=== PATIENT | male | born 1945 | race Two or more races ===

== ENCOUNTER 2016-12-09 10:47 | Outpatient (CLI) | payer MEDICARE ==
[2016-12-09 12:39] LABS: CREATININE 1.1 mg/dL (0.6-1.3)
== END 2016-12-09 23:59 | disposition home or self-care (01) ==
LOC: LAB 10:47
DX: I10 Essential (primary) hypertension (principal); R10.11 Right upper quadrant pain
CPT/HCPCS: 36415; 82565-TC; 84520-TC

== ENCOUNTER → 2016-12-10 | Outpatient (CLI) | payer MEDICARE ==
[~2016-12-10] MED LIST: BARIUM SULFATE SUSP 450 ML BOTTLE PO ONE; CT SWABBABLE VALVE TRANS SET 1 EA INFUS.SET MC ONE; IOHEXOL-300 100 ML VIAL IV ONE; IV NS 0.9% 250 ML IV ONE
== END | disposition home or self-care (01) ==
LOC: CT 09:00
DX: I10 Essential (primary) hypertension (principal); I31.1 Chronic constrictive pericarditis; N28.1 Cyst of kidney, acquired; I70.0 Atherosclerosis of aorta; M47.819 Spondylosis without myelopathy or radiculopathy, site unspecified
CPT/HCPCS: 74160; J7050; Q9967

== ENCOUNTER 2017-09-08 00:44 | Inpatient (IN) | payer MEDICARE ==
[2017-09-08] VITALS (16 sets, daily range): BP systolic 93–145; BP diastolic 45–77
[~2017-09-08] VITALS: Ht 182.9 cm; Wt 84.4 kg
[2017-09-08] MEDS: LORAZEPAM INJ 2 MG/ML VIAL IV ONE ×2 (01:00→02:35)
[2017-09-08] MEDS ORDERED: IV NS 0.9% 1,000 ML BAG IV ONE (01:00)
--- NOTE | 2017-09-08 01:00 | NUR ---
PT CALM AND RESTING IN BED. NO NEED TO MEDICATE PT FOR COMPLIANCE.
--- NOTE | 2017-09-08 01:05 | NUR ---
72 Y/O MALE PLACED IN BED 6 C/O LEFT SHOULDER PAIN. OXYGEN SAT LOW - 88%. PLACED ON 3L OXYGEN. PT TAKENTO CT.
[2017-09-08 01:09] LABS: BASOPHILS % (AUTO) 0.2 % (0.0-2.0); EOSINOPHILS # (AUTO) 0.1 /CMM (0.0-0.7); EOSINOPHILS % (AUTO) 0.4 % (0.0-6.0); HEMATOCRIT 41 % (39-51); HEMOGLOBIN 14.1 g/dL (13.5-17.5); LYMPHOCYTES # (AUTO) 1.5 /CMM (0.8-4.8); LYMPHOCYTES % (AUTO) 9.2 % (20.0-44.0); MEAN CORPUSCULAR HEMOGLOBIN 31 PG (26.0-33.0); MEAN CORPUSCULAR HGB CONC 34 g/dl (31.0-36.0); MEAN CORPUSCULAR VOLUME 89 fL (80-96); MONOCYTES # (AUTO) 0.8 /CMM (0.1-1.30); MONOCYTES % (AUTO) 5.1 % (2.0-12.0); NEUTROPHILS # (AUTO) 13.8 /CMM (1.8-8.9); NEUTROPHILS % (AUTO) 85.1 % (43.0-81.0); PLATELET COUNT (AUTO) 212 /CMM (150-450); RDW COEFFICIENT OF VARIATION 13.7 (11.5-15.0); RED BLOOD CELL COUNT(AUTO) 4.61 MIL/uL (4.5-6.0); WHITE BLOOD COUNT (AUTO) 16.3 K/uL (4.3-11.0)
[2017-09-08 01:22] LABS: INR 1.08 (0.87-1.13)
[2017-09-08 01:28] LABS: CALCIUM, SERUM 9.2 mg/dL (8.5-10.1); CARBON DIOXIDE 22 mmol/L (21-32); CHLORIDE 100 mmol/L (98-107); CREATININE 1.2 mg/dL (0.6-1.3); GLUCOSE 198 mg/dL (74-106); POTASSIUM 3.7 mmol/L (3.5-5.1); SODIUM SERUM 136 mmol/L (136-145); UREA NITROGEN, BLOOD 24 mg/dL (7-18)
[2017-09-08 01:32] LABS: ALANINE AMINOTRANSFERASE 34 U/L (12-78); ALBUMIN 3.9 g/dL (3.4-5.0); ALCOHOL, BLOOD < 3 mg/dL (0-0); ALKALINE PHOSPHATASE 90 U/L (46-116); ASPARTATE AMINOTRANSFERASE 35 U/L (15-37); BILIRUBIN,DIRECT 0.1 mg/dL (0.0-0.2); BILIRUBIN,TOTAL 0.4 mg/dL (0.2-1.0); TOTAL PROTEIN, SERUM 7.5 g/dL (6.4-8.2)
[2017-09-08 01:33] LABS: ACETAMINOPHEN 0 ug/ml (10-30); SERUM AMMONIA 25 umol/L (11-32)
[2017-09-08 01:38] LABS: TROPONIN I < 0.017 ng/mL (0.00-0.056)
[2017-09-08 01:39] LABS: THYROID STIMULATING HORMONE 1.232 uIU/mL (0.358-3.74)
[2017-09-08 02:24] LABS: APPEARANCE,URINE CLEAR (CLEAR); BILIRUBIN,URINE NEGATIVE (NEGATIVE); BLOOD, URINE 1+ Ery/uL (NEGATIVE); COLOR,URINE YELLOW (YELLOW); KETONES,URINE NEGATIVE (NEGATIVE); LEUKOCYTE ESTERASE ,URINE NEGATIVE (NEGATIVE); NITRITE, URINE NEGATIVE (NEGATIVE); PROTEIN,URINE NEGATIVE (NEGATIVE); UGLUCOSE 1+ mg/dL (NEGATIVE); UROBILINOGEN,URINE 0.2 EU/dL (0.2)
[2017-09-08 02:31] LABS: BACTERIA,URINE None seen /HPF (None Seen); SQUAMOUS EPITHELIAL CELL,UR Rare /HPF (None Seen); WBC,URINE 0-2 /HPF (0-3)
[2017-09-08] MEDS ORDERED: LORAZEPAM INJ 2 MG/ML VIAL ONE (02:33)
--- NOTE | 2017-09-08 02:38 | NUR ---
PT BACK FROM CT. RESTING COMFORTABLY. PT HAD A SZ IN HIS BED.
--- NOTE | 2017-09-08 02:39 | NUR ---
LEFT SHOULDER PAIN FROM POSSIBLE SZ.
--- NOTE | 2017-09-08 02:48 | NUR ---
AT 235 PT HAD A SZ, WENT INTO ASYSTOLE FOR 9 SECONDS AND THEN RETURNED TO NORMAL RHYTHM.
[2017-09-08] MEDS ORDERED: LORAZEPAM INJ 2 MG/ML VIAL IV ONE (03:00)
[2017-09-08] MEDS ORDERED: LEVETIRACETAM (500MG) 500 MG/5 ML VIAL IV ONE (03:24)
[2017-09-08] MEDS ORDERED: LEVETIRACETAM (500MG) 1,000 MG in IV NS 0.9% 100 ML IV SCH (03:30)
--- NOTE | 2017-09-08 03:46 | NUR ---
PT GIVEN ATIVAN POST SZ. THE COMBINATION OF POST-ICTAL AND ATIVAN HAS MADE THE PT VERY CONFUSED. PT IS VERY RESTLES, MOVING HIS LEGS FROM SIDE TO SIDE AND MAKING ANIMAL SOUNDS. PT HAS BEEN ASSIGNED A ROOM - 256. REPORT IS BEING CALLED AND PT IS BEING PREPED FOR TRANSFER TO ICU.
[2017-09-08] MEDS: LEVETIRACETAM (500MG) 1,000 MG in IV NS 0.9% 100 ML IV SCH ×3 (04:01→04:08)
--- NOTE | 2017-09-08 04:10 | NUR ---
ICU/RN RECEIVED DIRECT FROM ER VIA [facility] TO RM 256 W/ ADMITTING DX OF SEIZURE.MONITOR SHOWS NSR W/OUT ECTOPICS.PT TRASHING IN BED, EXTREMELY AGITATED.W/ PROJECTILE VOMITING LARGE AMT OF UNDIGESTED FOOD,GIBBERISH,UNCOOPERATIVE.BATHED AND LINEN CHANGED,QUIETED DOWN AFTERWARDS.
--- NOTE | 2017-09-08 05:00 | NUR ---
ICU/RN HERE TO SEE PT.INTERVIEWED RE:PT'S CONDITION AND QUESTIONNAIRE.CONDITION REPORT GIVEN.PT SLEEPING AT THIS TIME. MOVES ALL EXTREMITIES.
--- NOTE | 2017-09-08 06:15 | NUR ---
ICU/RN. DR MARLEY IN TO SEE PT.CONDITION REPORT GIVEN,SHOWED ASYSTOLIC RHYTHM AFTER SEIZURE IN ER.
[2017-09-08] MEDS ORDERED: ONDANSETRON HCL/PF 4 MG/2 ML VIAL IVP PRN (06:30)
[2017-09-08] MEDS ORDERED: LORAZEPAM INJ 2 MG/ML VIAL IV PRN (06:30)
[2017-09-08] MEDS ORDERED: ACETAMINOPHEN 650 MG/SUPP.RECT RC PRN (06:30)
[2017-09-08] MEDS ORDERED: LEVETIRACETAM (500MG) 500 MG in IV NS 0.9% 100 ML IV SCH (06:30)
[2017-09-08 06:31] LABS: BASOPHILS % (AUTO) 0.2 % (0.0-2.0); HEMATOCRIT 38 % (39-51); HEMOGLOBIN 13.1 g/dL (13.5-17.5); LYMPHOCYTES # (AUTO) 0.3 /CMM (0.8-4.8); LYMPHOCYTES % (AUTO) 2.5 % (20.0-44.0); MEAN CORPUSCULAR HEMOGLOBIN 31 PG (26.0-33.0); MEAN CORPUSCULAR HGB CONC 35 g/dl (31.0-36.0); MEAN CORPUSCULAR VOLUME 88 fL (80-96); MONOCYTES # (AUTO) 0.6 /CMM (0.1-1.30); MONOCYTES % (AUTO) 4.5 % (2.0-12.0); NEUTROPHILS # (AUTO) 13.2 /CMM (1.8-8.9); NEUTROPHILS % (AUTO) 92.8 % (43.0-81.0); PLATELET COUNT (AUTO) 169 /CMM (150-450); RDW COEFFICIENT OF VARIATION 13.4 (11.5-15.0); RED BLOOD CELL COUNT(AUTO) 4.27 MIL/uL (4.5-6.0); WHITE BLOOD COUNT (AUTO) 14.3 K/uL (4.3-11.0)
[2017-09-08 06:45] LABS: CALCIUM, SERUM 8.4 mg/dL (8.5-10.1); CARBON DIOXIDE 27 mmol/L (21-32); CHLORIDE 102 mmol/L (98-107); GLUCOSE 134 mg/dL (74-106); POTASSIUM 3.7 mmol/L (3.5-5.1); SODIUM SERUM 136 mmol/L (136-145); UREA NITROGEN, BLOOD 21 mg/dL (7-18)
[2017-09-08 06:49] LABS: CHOLESTEROL 114 mg/dL (<200); HDL CHOLESTEROL 57 mg/dL (40-60); LDL 56 mg/dL (0-99); TRIGLYCERIDES 24 mg/dL (30-150)
--- NOTE | 2017-09-08 06:50 | NUR ---
ICU/RN HERE TO TALK TO PT IN [place].DR SALOMON AND DR. MARLEY SPOKE RE:PLACEMENT OF PACEMAKER.
[2017-09-08 06:56] LABS: TROPONIN I 3.649 ng/mL (0.00-0.056)
[2017-09-08 06:58] LABS: ALANINE AMINOTRANSFERASE 31 U/L (12-78); ALBUMIN 3.6 g/dL (3.4-5.0); ALKALINE PHOSPHATASE 81 U/L (46-116); ASPARTATE AMINOTRANSFERASE 59 U/L (15-37); B-TYPE NATRIURETIC PEPTIDE 141 PG/ML (0-125); BILIRUBIN,TOTAL 0.9 mg/dL (0.2-1.0); MAGNESIUM 2.2 mg/dL (1.8-2.4); PHOSPHORUS 2.2 mg/dL (2.5-4.9); TOTAL PROTEIN, SERUM 6.7 g/dL (6.4-8.2)
--- NOTE | 2017-09-08 07:30 | NUR ---
RN NOTE PT SLEEPY, BUT WAKES UP, PT AWARE WHERE HE IS. NO CO PAIN. IV SITE IN R AC, VS STABLE. CALL LIGHT WITHIN REACH. SAFETY MEASURES AND SEIZURE PRECAUTIONS OBSERVED. WILL MONITOR
--- NOTE | 2017-09-08 08:33 | NUR ---
RN NOTE OBTAINED CONSENT FOR PACEMAKER PLACEMENT FROM FER SAGASTUME AFTER SHE SPOKE WITH DR CRAIN. DAUGHTER AND SON IN LAW AT BEDSIDE. UPDATE REGARDING THE PT GIVEN.
[2017-09-08] MEDS ORDERED: RANI150T12 PO (08:49)
[2017-09-08] MEDS ORDERED: LISI2.5T2 PO (08:49)
[2017-09-08] MEDS ORDERED: MIDAZOLAM HCL 2 MG/2ML VIAL ONE (08:57)
[2017-09-08] MEDS ORDERED: FUROSEMIDE 20 MG/2 ML VIAL IV SCH (09:00)
[2017-09-08] MEDS ORDERED: LIDOCAINE 1% INJ 50 ML MDV IJ ONE (09:04)
--- NOTE | 2017-09-08 11:00 | NUR ---
RN NOTE PT CAME BACK FROM OR L CHEST WALL INCISION REDNESS, NO SWELLING, NO BLEEDING, VS STABLE, PAIN IN LEFT ARM UPON MOVING, WELL ON RIGHT ARM DUE TO FRACTURE. CALL LIGHT WITHIN REACH, WILL MONITOR PT CLOSELY.
[2017-09-08] MEDS: FAMOTIDINE/PF INJ 20 MG/2 ML VIAL IV SCH ×2 (11:13→22:28)
[2017-09-08] MEDS: Potassium Chloride 20 MEQ in IV D5/0.45 NACL 1,000 ML IV PRN (11:14)
[2017-09-08] MEDS: LEVETIRACETAM (500MG) 500 MG in IV NS 0.9% 100 ML IV SCH (12:19)
[2017-09-08] MEDS ORDERED: ACETAMINOPHEN 325 MG TABLET PO PRN (12:30)
[2017-09-08] MEDS ORDERED: HYDROCODONE/APAP 5/325MG 1 EACH TABLET PO PRN (12:30)
[2017-09-08] MEDS ORDERED: DOCUSATE SODIUM 250 MG CAPSULE PO PRN (12:30)
[2017-09-08] MEDS ORDERED: POTASSIUM PHOSPHATE MM 7.5 MMOL in IV D5W 100 ML IV SCH (13:30)
--- NOTE | 2017-09-08 14:15 | NUR ---
RN NOTE SPOKE WITH DR MARLEY REGARDING TROPONIN 7.238, HE ORDERED ASPIRIN DAILY 81MG AND LOVENOX 1MG/KG BID. WILL ORDER AND VERIFY WITH PHARMACY.
[2017-09-08] MEDS ORDERED: Z GUARD REMEDY 2 OZ OINT TP PRN (14:30)
[2017-09-08] MEDS: ASPIRIN 81 MG TAB.CHEW PO SCH (15:04)
--- NOTE | 2017-09-08 16:00 | NUR ---
RN NOTE PT ABLE TO TOLERATE LIQUIDS AND MEDS. SWALLOWED NORMALLY EARLIER, PER DR IT IS OKAY TO ORDER CARDIAC DIET.
[2017-09-08] MEDS: CEFAZOLIN SODIUM 1 GM in IV SODIUM CHLORIDE 0.9% 50 ML IV SCH (18:16)
--- NOTE | 2017-09-08 18:32 | NUR ---
RN NOTE PER DR MARLEY DOWNGRADE PT TO TELE, PT NEEDS TO BE NPO EXCEPT MEDS POST MIDNIGHT FOR [facility] CARDIAC INVESTMENT RECOVERY TECHNICIAN, RN RESEARCH TIME AT 0900 ON 09/09/17, HOLD LOVENOX IN THE MORNING, GIVE REPORT TO CARDIAC CATH AT . WILL ENDORSE TO NEXT SHIFT
[2017-09-08] MEDS: MORPHINE SULFATE INJ 2 MG/ML DISP.SYRIN IV PRN (19:33)
--- NOTE | 2017-09-08 19:40 | NUR ---
RN NOTES PT COMPLAINED OF SEVERE PAIN BETWEEN 8-10 SCALE. PT IS AOX3 STILL SLEEPY BUT VERBALIZED FEELINGS OF PAIN, FAMILY AT BEDSIDE. PRN MORPHINE IVP ADMINISTERED ORDERED. AND WILL FOLLOW UP FOR EFFECTIVENESS AFTER 30 -1 H. FAMILY AT BEDSIDE (DAUGHTER AND ) MADE AWARE.
--- NOTE | 2017-09-08 20:00 | NUR ---
RN NOTES FAMILY LEFT AND LEAVE THEIR CELL NUMBER, AWARE ABOUT THE PLAN OF CARE FOR TOMORROW TO [facility] FOR CARDIAC CATH.
--- NOTE | 2017-09-08 20:25 | NUR ---
RN NOTES TRANSFER PT TO ROOM [address]. REPORT GIVEN TO CHARITO FOR CONTINUITY OF CARE.
--- NOTE | 2017-09-08 20:30 | NUR ---
RN INITIAL NOTES RECEIVED PATIENT TRANSFER FROM ICU VIA ACLS PROTOCOL, PATIENT TOLERATED TRANSFER WELL. PATIENT IS LETHARGIC, BUT AROUSABLE TO NAME, ALERT AND ORIENTED X3. BREATHING EVEN AND NONLABORED WHILE ON O2 VIA NC @ 2LPM, TOLERATING WELL, FREE FROM ANY S/S OF RESPIRATORY DISTRESS. PLACED ON TELEMETRY MONITORING, REVEALING SINUS RHYTHM WITH BBB, HR = 72 AT THIS TIME, NO PACER SPIKES NOTED AT THIS TIME. RIGHT ARM SLING IN PLACE. IV SITES PATENT AND INTACT, FLUSHED WITH NS, FREE FROM ANY S/S OF INFILTRATION OR PHLEBITIS, IVF INFUSING ORDERED. DVT PUMPS IN PLACE. CALL LIGHT LEFT WITHIN EASY REACH, BED IN LOWEST AND LOCKED POSITION. WILL CONTINUE TO CLOSELY MONITOR
[2017-09-08] MEDS: ENOXAPARIN SODIUM 80 MG/0.8 ML DISP.SYRIN SQ SCH (22:30)
[2017-09-09] VITALS: BP 116/71
[2017-09-09] MEDS: LEVETIRACETAM (500MG) 500 MG in IV NS 0.9% 100 ML IV SCH (01:34)
--- NOTE | 2017-09-09 01:50 | NUR ---
RN NOTES PATIENT WITH C/O RIGHT SHOULDER PAIN. PATIENT REPOSITIONED SLIGHTLY FOR COMFORT, WITH NOTED IMPROVEMENT IN PAIN. OFFERED PAIN MEDICATION, BUT PATIENT REFUSES. WILL CONTINUE TO CLOSELY MONITOR
[2017-09-09] MEDS: CEFAZOLIN SODIUM 1 GM in IV SODIUM CHLORIDE 0.9% 50 ML IV SCH (02:23)
[2017-09-09 04:00] VITALS: BP 139/56
--- NOTE | 2017-09-09 07:00 | NUR ---
RN CLOSING NOTES PATIENT RESTING COMFORTABLY IN BED, DENIES PAIN. PATIENT NPO EXCEPT MEDS SINCE [place]. PATIENT ENDORSED TO THE AM SHIFT NURSE FOR NATASHA, AWARE TO HOLD LOVENOX DOSE, SCHEDULED FOR CARDIAC CATH AT [facility], VOCATIONAL REHABILITATION TEACHER AT 0900 PER CM.
--- NOTE | 2017-09-09 07:53 | NUR ---
TERRAZZO ROLLER NOTES RECEIVED PT ON BED SLEEPING, ALERT ORIENTED X3. ON NC 2L, SATURATING WELL NO SIGN OF RESPIRATORY DISTRESS. NO TELE MONITOR SR WITH BBB HR 70S. IV ACCESS LAC AND RAC. IV FLUID #20G D51/2NS WITH KCI 20MEQ @60CC/HR RUNNING WELL. HEAD OF BED ELEVATED. SIDE RAILS UP. CALL LIGHT WITHIN REACH. WILL CONTINUE TO MONITOR PT CLOSELY.
--- NOTE | 2017-09-09 07:55 | NUR ---
BARREL LAPPER NOTES CALLED [facility], THEY CANCEL THE CARDIAC CATH DUE TO NO BED AVAILABLE PER [facility].
[2017-09-09 08:00] VITALS: BP 129/62
[2017-09-09] MEDS: ENOXAPARIN SODIUM 80 MG/0.8 ML DISP.SYRIN SQ SCH (09:00)
[2017-09-09] MEDS ORDERED: LEVETIRACETAM (500MG) 500 MG in IV NS 0.9% 100 ML IV SCH (09:00)
[2017-09-09 09:28] LABS: BASOPHILS % (AUTO) 0.4 % (0.0-2.0); EOSINOPHILS % (AUTO) 0.5 % (0.0-6.0); HEMATOCRIT 35 % (39-51); HEMOGLOBIN 12.4 g/dL (13.5-17.5); LYMPHOCYTES # (AUTO) 0.5 /CMM (0.8-4.8); LYMPHOCYTES % (AUTO) 5.9 % (20.0-44.0); MEAN CORPUSCULAR HEMOGLOBIN 31 PG (26.0-33.0); MEAN CORPUSCULAR HGB CONC 35 g/dl (31.0-36.0); MEAN CORPUSCULAR VOLUME 87 fL (80-96); MONOCYTES # (AUTO) 0.5 /CMM (0.1-1.30); NEUTROPHILS # (AUTO) 6.8 /CMM (1.8-8.9); NEUTROPHILS % (AUTO) 86.2 % (43.0-81.0); PLATELET COUNT (AUTO) 137 /CMM (150-450); RDW COEFFICIENT OF VARIATION 12.4 (11.5-15.0); RED BLOOD CELL COUNT(AUTO) 4.02 MIL/uL (4.5-6.0); WHITE BLOOD COUNT (AUTO) 7.8 K/uL (4.3-11.0)
[2017-09-09] MEDS: ASPIRIN 81 MG TAB.CHEW PO SCH (09:35)
[2017-09-09] MEDS: FAMOTIDINE/PF INJ 20 MG/2 ML VIAL IV SCH ×2 (09:35→21:59)
[2017-09-09] MEDS: Potassium Chloride 20 MEQ in IV D5/0.45 NACL 1,000 ML IV PRN (10:30)
[2017-09-09 10:53] LABS: CALCIUM, SERUM 8.5 mg/dL (8.5-10.1); CARBON DIOXIDE 22 mmol/L (21-32); CHLORIDE 105 mmol/L (98-107); CREATININE 0.9 mg/dL (0.6-1.3); GLUCOSE 130 mg/dL (74-106); POTASSIUM 3.9 mmol/L (3.5-5.1); SODIUM SERUM 137 mmol/L (136-145); UREA NITROGEN, BLOOD 16 mg/dL (7-18)
[2017-09-09 10:59] LABS: ALANINE AMINOTRANSFERASE 35 U/L (12-78); ALBUMIN 3.1 g/dL (3.4-5.0); ALKALINE PHOSPHATASE 68 U/L (46-116); ASPARTATE AMINOTRANSFERASE 66 U/L (15-37); BILIRUBIN,TOTAL 0.7 mg/dL (0.2-1.0); MAGNESIUM 2.3 mg/dL (1.8-2.4); TOTAL PROTEIN, SERUM 6.2 g/dL (6.4-8.2)
[2017-09-09 12:00] VITALS: BP 135/66
[2017-09-09 16:00] VITALS: BP 129/71
[2017-09-09] MEDS ORDERED: GADOVERSETAMIDE 2.5 MMOL/5 ML VIAL IJ ONE (17:34)
[2017-09-09] MEDS ORDERED: GADOVERSETAMIDE 5 MMOL/10 ML VIAL IJ ONE (17:34)
--- NOTE | 2017-09-09 18:48 | NUR ---
IT INTEGRATION ARCHITECT NOTES NO ACUTE CHANGES NOTED DURING THE SHIFT. PROVIDED COMFORT AND SAFETY. DUE MEDS GIVEN. WILL ENDORSED TO THE PM NURSE FOR NATASHA.
--- NOTE | 2017-09-09 19:00 | NUR ---
RN OPENING NOTES PT RESTING IN BED. FAMILY AT BEDSIDE. PT HAS RIGHT SHOULDER FX. PT IS TELE MONITORED AT SR WITH BBB RATE IN THE 80'S. S/P PACEMAKER PLACEMENT (09/08/17). PT WILL BE TRANSFERRED TO [facility] FOR CARDIAC CATH CLINICAL APPEALS SPECIALIST WILL BE AT 0830. CONFIRMED WITH TRANSPORT. PT WILL BE NPO AFTER MIDNIGHT. PT HAS A R AC #16 INTACT AND PATENT AND A L AC #20 RUNNING D5 1/2 NS WITH KCL 20MEQ @60ML/HR. PT TOLERATING FLUIDS WELL. SAFETY PRECAUTIONS IN PLACE. WILL CONTINUE TO MONITOR.
--- NOTE | 2017-09-09 20:45 | NUR ---
RN NOTES PT AND FAMILY REFUSED XR OF SPINE. FAMILY STATED THAT THE PT WAS IN TOO MUCH PAIN TO GO THROUGH XRAY. GAVE FAMILY OPTION OF MEDICATING PT BEFORE XRAY. FAMILY CONTINUED TO REFUSE.
[2017-09-09] MEDS ORDERED: METOPROLOL TARTRATE 25 MG TABLET PO SCH (21:00)
[2017-09-09] MEDS ORDERED: ATORVASTATIN 40 MG TABLET PO SCH (22:00)
--- NOTE | 2017-09-09 22:00 | NUR ---
RN NOTES PT REQUESTED PAIN PRN PAIN MEDICATION FOR RIGHT SHOULDER PAIN. WILL ADMINISTER PRN MORPHINE 2MG. WILL CONTINUE TO MONITOR.
[2017-09-09] MEDS: MORPHINE SULFATE INJ 2 MG/ML DISP.SYRIN IV PRN (22:01)
[2017-09-09 22:41] VITALS: BP 143/61
[2017-09-10] VITALS: BP 130/63
[2017-09-10] MEDS: MORPHINE SULFATE INJ 2 MG/ML DISP.SYRIN IV PRN (02:32)
--- NOTE | 2017-09-10 02:32 | NUR ---
RN NOTES PT COMPLAINED UNABLE TO SLEEP BECAUSE OF PAIN. WILL ADMINISTER PRN PAIN MEDICATION, MORPHINE 2MG. WILL CONTINUE TO MONITOR.
[2017-09-10 04:00] VITALS: BP 130/62
[2017-09-10] MEDS: Potassium Chloride 20 MEQ in IV D5/0.45 NACL 1,000 ML IV PRN (04:20)
--- NOTE | 2017-09-10 06:39 | NUR ---
RN CLOSING NOTES PT AWAKE AND RESTING IN BED. NO COMPLAINTS OF PAIN, SOB OR DISTRESS AT THIS TIME. ALL PT NEEDS MET. PT IS TELE MONITORED SINUS RHYTHM WITH BBB HR IN THE 80'S. PT HAS A PACING PACEMAKER. PT IS NPO. PT HAS RIGHT AC #16 AND A LEFT AC #20 RUNNING D5 1/2NS WITH KCL 20MEQ @60ML/HR, PT TOLERATING WELL. PT WILL BE TRANSFERRED TO [facility] FOR CARDIAC O AND M SUPERVISOR. PT WILL BE PICKED UP BY TRANSPORT BY 830 FOR 1030 APPOINTMENT. SAFETY PRECAUTIONS IN PLACE. BED LOW LOCKED POSITION, CALL LIGHT WITHIN REACH. WILL ENDORSE TO DAY SHIFT NURSE FOR CONTINUITY OF CARE.
[2017-09-10 06:53] LABS: BASOPHILS % (AUTO) 0.3 % (0.0-2.0); EOSINOPHILS # (AUTO) 0.1 /CMM (0.0-0.7); EOSINOPHILS % (AUTO) 1.8 % (0.0-6.0); HEMATOCRIT 32 % (39-51); HEMOGLOBIN 11.3 g/dL (13.5-17.5); LYMPHOCYTES # (AUTO) 0.9 /CMM (0.8-4.8); LYMPHOCYTES % (AUTO) 12.2 % (20.0-44.0); MEAN CORPUSCULAR HEMOGLOBIN 31 PG (26.0-33.0); MEAN CORPUSCULAR HGB CONC 35 g/dl (31.0-36.0); MEAN CORPUSCULAR VOLUME 89 fL (80-96); MONOCYTES # (AUTO) 0.8 /CMM (0.1-1.30); MONOCYTES % (AUTO) 11.2 % (2.0-12.0); NEUTROPHILS # (AUTO) 5.6 /CMM (1.8-8.9); NEUTROPHILS % (AUTO) 74.5 % (43.0-81.0); PLATELET COUNT (AUTO) 134 /CMM (150-450); RDW COEFFICIENT OF VARIATION 13.6 (11.5-15.0); RED BLOOD CELL COUNT(AUTO) 3.65 MIL/uL (4.5-6.0); WHITE BLOOD COUNT (AUTO) 7.4 K/uL (4.3-11.0)
[2017-09-10 06:58] LABS: ALANINE AMINOTRANSFERASE 32 U/L (12-78); ALBUMIN 2.8 g/dL (3.4-5.0); ALKALINE PHOSPHATASE 59 U/L (46-116); ASPARTATE AMINOTRANSFERASE 41 U/L (15-37); BILIRUBIN,TOTAL 0.6 mg/dL (0.2-1.0); CALCIUM, SERUM 8.4 mg/dL (8.5-10.1); CARBON DIOXIDE 25 mmol/L (21-32); CHLORIDE 105 mmol/L (98-107); CREATININE 0.8 mg/dL (0.6-1.3); GLUCOSE 134 mg/dL (74-106); MAGNESIUM 2.3 mg/dL (1.8-2.4); PHOSPHORUS 2.3 mg/dL (2.5-4.9); POTASSIUM 4.2 mmol/L (3.5-5.1); SODIUM SERUM 138 mmol/L (136-145); TOTAL PROTEIN, SERUM 6.2 g/dL (6.4-8.2); UREA NITROGEN, BLOOD 18 mg/dL (7-18)
[2017-09-10 07:04] LABS: TROPONIN I 0.955 ng/mL (0.00-0.056)
--- NOTE | 2017-09-10 07:55 | NUR ---
INSPECTOR AIR CARRIER NOTES RECEIVED PT ON BED SLEEPING. ALERT ORIENTEDX4. ON NASAL CANNULA 2L SATURATING WELL. ON TELE MONITOR SR WITH BBB A PACING HR 80. IV ACCESS ON LAC #20 D51/2NS KCI 20MEQ @60CC/HR. PT NPO. HEAD OF BED ELEVATED. SIDE RAILS UP. CALL LIGHT WITHIN REACH. WILL CONTINUE TO MONITOR PT CLOSELY
--- NOTE | 2017-09-10 07:58 | NUR ---
SHARPLES MACHINE OPERATOR NOTES PT SCHEDULED FOR CARDIAC CATH. REPORT GIVEN TO KALPESH DICK.
[2017-09-10 08:00] VITALS: BP 138/63
--- NOTE | 2017-09-10 08:52 | NUR ---
MANAGER WIND NOTES PT TRANSPORTED STABLE WITH RN AND AMBULANZ STAFF GOING TO [facility] FOR CARDIAC CATH.
--- NOTE | 2017-09-10 18:30 | NUR ---
CAR WASHER NOTES CALLED [facility]. SPOKE TO KALPESH TO FOLLOW UP IF THE PT WILL BE RETURNING TO UNIT POST CARDIAC CATH PROCEDURE. PER KALPESH PT WILL BE ADMITTED POST PROCEDURE TO THEIR HOSPITAL. CHARGE NURSE NOTIFIED.
== END 2017-09-10 08:30 | disposition short-term general hospital (02) | DRG 242 ==
LOC: ER 00:45 → ICU 03:35 → TELE1 20:30
PROVIDERS: ADMIT Nurse Practitioner Acute Care; ATTEND Nurse Practitioner Acute Care
PROC: 0JH606Z Insertion of Pacemaker, Dual Chamber into Chest Subcutaneous Tissue and Fascia, Open Approach (ICD-10-PCS; 2017-09-08)
PROC: 02HK3JZ Insertion of Pacemaker Lead into Right Ventricle, Percutaneous Approach (ICD-10-PCS; 2017-09-08)
PROC: 02H63JZ Insertion of Pacemaker Lead into Right Atrium, Percutaneous Approach (ICD-10-PCS; principal; 2017-09-08 09:47)
DX: I49.5 Sick sinus syndrome (principal); I21.4 Non-ST elevation (NSTEMI) myocardial infarction; I46.9 Cardiac arrest, cause unspecified; N17.0 Acute kidney failure with tubular necrosis; I11.0 Hypertensive heart disease with heart failure; I50.9 Heart failure, unspecified; D72.829 Elevated white blood cell count, unspecified; E11.9 Type 2 diabetes mellitus without complications; S42.291A Other displaced fracture of upper end of right humerus, initial encounter for closed fracture; R56.9 Unspecified convulsions; W19.XXXA Unspecified fall, initial encounter; E66.9 Obesity, unspecified; Z86.19 Personal history of other infectious and parasitic diseases; Z68.25 Body mass index [BMI] 25.0-25.9, adult; R55 Syncope and collapse; I25.10 Atherosclerotic heart disease of native coronary artery without angina pectoris; Y93.9 Activity, unspecified; Y92.009 Unspecified place in unspecified non-institutional (private) residence as the place of occurrence of the external cause; I35.0 Nonrheumatic aortic (valve) stenosis
CPT/HCPCS: 36415; 70450-TC; 70553-TC; 71045-TC; 73030-TC; 80048-TC; 80053-TC; 80061-TC; 80076-TC; 80305; 81000-TC; 82140-TC; 83605-TC; 83735-TC; 83880; 84100-TC; 84443-TC; 84484-TC; 85025-TC; 85730-TC; 87081-TC; 93307-TC; 95819-TC; A4216; A4606; A9579; G0480; J0690; J1650; J1940; J1953; J2060; J2250; J2270; J2704; J3480; J3490; J7030; J7060; Z7610

== ENCOUNTER 2018-02-01 11:45 | Outpatient (CLI) | payer MEDICARE ==
[~2018-02-01 11:45] MED LIST changes: -BARIUM SULFATE SUSP 450 ML BOTTLE PO ONE; -CT SWABBABLE VALVE TRANS SET 1 EA INFUS.SET MC ONE; -IOHEXOL-300 100 ML VIAL IV ONE; -IV NS 0.9% 250 ML IV ONE; +LISI2.5T2 PO; +RANI150T43 PO
== END 2018-02-01 23:59 | disposition home or self-care (01) ==
LOC: RAD 11:45
PROVIDERS: ATTEND Family Medicine
DX: M79.89 Other specified soft tissue disorders (principal)
CPT/HCPCS: 73080-TC

== ENCOUNTER 2018-05-20 09:40 | Outpatient (CLI) | payer MEDICARE | END 2018-05-20 23:59 | disposition home or self-care (01) | LOC: RAD 09:40 | PROVIDERS: ATTEND Family Medicine | DX: M19.011 Primary osteoarthritis, right shoulder (principal); I10 Essential (primary) hypertension; Z86.19 Personal history of other infectious and parasitic diseases | CPT/HCPCS: 71100-TC ==

== ENCOUNTER 2023-12-25 10:07 | Inpatient (IN) | payer MEDICARE ==
[~2023-12-25] VITALS: Ht 167.6 cm; Wt 74.4 kg
[~2023-12-25 10:07] MED LIST changes: +RANI-655 PO; -RANI150T43 PO
[2023-12-25 10:42] LABS: BASOPHILS # (AUTO) 0.1 K/uL (0.0-0.2); BASOPHILS % (AUTO) 0.6 % (0.0-2.0); EOSINOPHILS # (AUTO) 0.2 K/uL (0.0-0.7); EOSINOPHILS % (AUTO) 1.9 % (0.0-6.0); HEMATOCRIT 41 % (39-51); HEMOGLOBIN 13.5 g/dL (13.5-17.5); LYMPHOCYTES # (AUTO) 2.4 K/uL (0.8-4.8); LYMPHOCYTES % (AUTO) 25.7 % (20.0-44.0); MEAN CORPUSCULAR HEMOGLOBIN 30 PG (26.0-33.0); MEAN CORPUSCULAR HGB CONC 33 g/dl (31.0-36.0); MEAN CORPUSCULAR VOLUME 91 fL (80-96); MONOCYTES # (AUTO) 0.8 K/uL (0.1-1.30); NEUTROPHILS # (AUTO) 5.8 K/uL (1.8-8.9); NEUTROPHILS % (AUTO) 62.8 % (43.0-81.0); PLATELET COUNT (AUTO) 197 K/uL (150-450); RED BLOOD CELL COUNT(AUTO) 4.47 MIL/uL (4.5-6.0); RED CELL DISTRIBUTION WIDTH 14.4 % (11.5-15.0); WHITE BLOOD COUNT (AUTO) 9.3 K/uL (4.3-11.0)
[2023-12-25 10:51] LABS: CALCIUM, SERUM 9.2 mg/dL (8.5-10.1); CREATININE 1.1 mg/dL (0.6-1.3); POTASSIUM 4.4 mmol/L (3.5-5.1)
[2023-12-25 10:57] LABS: ALBUMIN 3.6 g/dL (3.4-5.0); BILIRUBIN,DIRECT 0.2 mg/dL (0.0-0.2); BILIRUBIN,TOTAL 0.5 mg/dL (0.2-1.0); TOTAL PROTEIN, SERUM 7.5 g/dL (6.4-8.2)
[2023-12-25] MEDS ORDERED: METO25TA4 PO (11:41)
[2023-12-25] MEDS ORDERED: LOSA25TA27 PO (11:41)
[2023-12-25] MEDS ORDERED: PANT40TA49 PO (11:41)
[2023-12-25] MEDS ORDERED: ATOR10TA PO (11:41)
[2023-12-25] MEDS ORDERED: TADA5TAB2 PO (11:41)
[2023-12-25] MEDS ORDERED: LEVETIRACETAM (500MG) 1,000 MG in IV NS 0.9% 90 ML IV SCH (12:00)
[2023-12-25] MEDS: PANTOPRAZOLE 40 MG TABLET.DR PO SCH (12:00)
[2023-12-25] MEDS ORDERED: LEVETIRACETAM (500MG) 1,000 MG in IV NS 0.9% 90 ML IV ONE (12:10)
[2023-12-25] MEDS ORDERED: LACOSAMIDE 50 MG TABLET ONE (13:06)
[2023-12-25] MEDS: LACOSAMIDE 50 MG TABLET PO SCH (13:11)
[2023-12-25 16:00] VITALS: BP 124/62; TEMP 98.6; O2SAT 95
[2023-12-25] MEDS: ATORVASTATIN 10 MG TABLET PO SCH (17:07)
[2023-12-25 20:00] VITALS: BP 113/64; TEMP 98.8; O2SAT 95
[2023-12-25] MEDS ORDERED: Z GUARD REMEDY 4 OZ OINT TP PRN (21:00)
[2023-12-25] MEDS ORDERED: ACETAMINOPHEN 325 MG TABLET PO PRN (21:00)
[2023-12-25] MEDS ORDERED: ONDANSETRON HCL/PF 4 MG/2 ML VIAL IVP PRN (21:00)
[2023-12-25] MEDS: ENOXAPARIN SODIUM 40 MG/0.4 ML DISP.SYRIN SQ SCH (21:00)
[2023-12-25 21:37] LABS: THYROID STIMULATING HORMONE 0.686 uIU/mL (0.358-3.74)
[2023-12-25 23:49] VITALS: BP 118/70; TEMP 98.8; O2SAT 95
[2023-12-26] VITALS (7 sets, daily range): BP systolic 118–148; BP diastolic 70–75; TEMP 98.1–98.8; O2SAT 95–98
[2023-12-26 06:25] LABS: BASOPHILS % (AUTO) 0.4 % (0.0-2.0); EOSINOPHILS # (AUTO) 0.1 K/uL (0.0-0.7); HEMATOCRIT 39 % (39-51); HEMOGLOBIN 13.3 g/dL (13.5-17.5); LYMPHOCYTES # (AUTO) 0.8 K/uL (0.8-4.8); LYMPHOCYTES % (AUTO) 16.8 % (20.0-44.0); MEAN CORPUSCULAR HEMOGLOBIN 31 PG (26.0-33.0); MEAN CORPUSCULAR HGB CONC 34 g/dl (31.0-36.0); MEAN CORPUSCULAR VOLUME 90 fL (80-96); MONOCYTES # (AUTO) 0.5 K/uL (0.1-1.30); NEUTROPHILS # (AUTO) 3.3 K/uL (1.8-8.9); NEUTROPHILS % (AUTO) 69.8 % (43.0-81.0); PLATELET COUNT (AUTO) 134 K/uL (150-450); RED BLOOD CELL COUNT(AUTO) 4.34 MIL/uL (4.5-6.0); RED CELL DISTRIBUTION WIDTH 14.1 % (11.5-15.0); WHITE BLOOD COUNT (AUTO) 4.7 K/uL (4.3-11.0)
[2023-12-26 06:39] LABS: CALCIUM, SERUM 8.3 mg/dL (8.5-10.1); CREATININE 1.1 mg/dL (0.6-1.3); MAGNESIUM 2.4 mg/dL (1.8-2.4); PHOSPHORUS 2.7 mg/dL (2.5-4.9); POTASSIUM 3.8 mmol/L (3.5-5.1)
[2023-12-26] MEDS ORDERED: ASPI-1420 PO (06:40)
[2023-12-26] MEDS: PANTOPRAZOLE 40 MG TABLET.DR PO SCH (07:49)
[2023-12-26] MEDS: LOSARTAN POTASSIUM 25 MG TABLET PO SCH (08:19)
[2023-12-26] MEDS: METOPROLOL SUCCINATE 25 MG TAB.SR.24H PO SCH (08:20)
[2023-12-26] MEDS ORDERED: LISINOPRIL (5MG) 5 MG TABLET PO SCH (09:00)
[2023-12-27] VITALS: BP 111/70; TEMP 98.1; O2SAT 95
[2023-12-27 04:00] VITALS: BP 136/74; TEMP 98.1; O2SAT 96
[2023-12-27 05:00] VITALS: BP 136/74; TEMP 98.1; O2SAT 96
[2023-12-27 07:00] LABS: BASOPHILS % (AUTO) 0.4 % (0.0-2.0); EOSINOPHILS # (AUTO) 0.2 K/uL (0.0-0.7); EOSINOPHILS % (AUTO) 3.4 % (0.0-6.0); HEMATOCRIT 43 % (39-51); HEMOGLOBIN 14.5 g/dL (13.5-17.5); LYMPHOCYTES # (AUTO) 0.9 K/uL (0.8-4.8); MEAN CORPUSCULAR HEMOGLOBIN 31 PG (26.0-33.0); MEAN CORPUSCULAR HGB CONC 34 g/dl (31.0-36.0); MEAN CORPUSCULAR VOLUME 91 fL (80-96); MONOCYTES # (AUTO) 0.5 K/uL (0.1-1.30); MONOCYTES % (AUTO) 11.8 % (2.0-12.0); NEUTROPHILS % (AUTO) 65.4 % (43.0-81.0); PLATELET COUNT (AUTO) 145 K/uL (150-450); RED BLOOD CELL COUNT(AUTO) 4.72 MIL/uL (4.5-6.0); RED CELL DISTRIBUTION WIDTH 14.1 % (11.5-15.0); WHITE BLOOD COUNT (AUTO) 4.7 K/uL (4.3-11.0)
[2023-12-27 07:21] LABS: CALCIUM, SERUM 9.4 mg/dL (8.5-10.1); CREATININE 0.9 mg/dL (0.6-1.3); MAGNESIUM 2.3 mg/dL (1.8-2.4); PHOSPHORUS 2.4 mg/dL (2.5-4.9); POTASSIUM 3.9 mmol/L (3.5-5.1)
[2023-12-27 08:00] VITALS: BP 143/80; TEMP 98.1; O2SAT 97
[2023-12-27 08:11] VITALS: BP 143/80
== END 2023-12-27 14:23 | disposition home or self-care (01) | DRG 74 ==
LOC: ER 10:11 → TELE 12:08 → MED 12-27 13:01
PROVIDERS: ADMIT Nurse Practitioner Acute Care; ATTEND Nurse Practitioner Acute Care
DX: G90.8 Other disorders of autonomic nervous system (principal); M48.54XA Collapsed vertebra, not elsewhere classified, thoracic region, initial encounter for fracture; D64.9 Anemia, unspecified; D69.6 Thrombocytopenia, unspecified; E78.5 Hyperlipidemia, unspecified; E83.51 Hypocalcemia; I10 Essential (primary) hypertension; M19.90 Unspecified osteoarthritis, unspecified site; Z85.05 Personal history of malignant neoplasm of liver; Z95.0 Presence of cardiac pacemaker; R74.8 Abnormal levels of other serum enzymes; Z86.19 Personal history of other infectious and parasitic diseases; N40.0 Benign prostatic hyperplasia without lower urinary tract symptoms; Z92.21 Personal history of antineoplastic chemotherapy; R55 Syncope and collapse; Z95.2 Presence of prosthetic heart valve
CPT/HCPCS: 36415; 70450-TC; 71045-TC; 72128-TC; 80048-TC; 80061-TC; 80076-TC; 83735-TC; 84100-TC; 84443-TC; 84484-TC; 85025-TC; 93307-TC; 93880-TC; G0378; J1953; J7030